=== PATIENT | male | born 1990 | race Caucasian/White ===

== ENCOUNTER 2016-12-26 10:17 | Inpatient (IN) | payer BC ==
[~2016-12-26] VITALS: Wt 94.8 kg
[~2016-12-26 10:17] MED LIST: ATARAX,VISTARIL50 MG PO; CARBIDOPA/LEVOD1 TA1 PO; Cleocin150 MG PO; ZOFRAN 4 MG ED2 TAB PO
[2016-12-26 10:24] VITALS: BP 149/76
[2016-12-26 11:27] LABS: BASO % 0.3 % (0.0-1.0); EOS # 0.1 10*3/uL (0.0-0.4); HEMATOCRIT 47.7 % (42.0-52.0); LYMPH # 1.7 10*3/uL (1.3-4.4); MEAN CELL VOLUME 89.5 fl (80.0-94.0); MEAN CORPUSCULAR HGB CONC 33.5 g/dl (33.0-37.0); MEAN PLATELET VOLUME 10.5 fl (9.6-12.3); MONO # 0.8 10*3/uL (0.1-1.0); NEUT # 10.6 10*3/uL (2.3-7.9); NEUT % 79.4 % (47.0-73.0); PLATELET COUNT AUTOMATED 227 10*3/uL (130-400); RED BLOOD COUNT 5.33 10*6/uL (4.50-5.90); RED CELL DISTRI WIDTH 12.9 % (0-14.5); WHITE BLOOD COUNT 13.3 10*3/uL (4.8-10.8)
[2016-12-26 11:35] LABS: PROTHROMBIN TIME 10.6 SECONDS (9.0-12.4)
[2016-12-26 11:40] LABS: BILIRUBIN 1+ (NEGATIVE); BLOOD NEGATIVE (NEGATIVE); CLARITY SL CLOUDY (CLEAR); COLOR YELLOW (YELLOW); GLUCOSE NEGATIVE (NEGATIVE); KETONE NEGATIVE (NEGATIVE); LEUKO ESTERASE NEGATIVE (NEGATIVE); NITRITE NEGATIVE (NEGATIVE); PH 6.5 (5.0-9.0); PROTEIN 1+ (NEGATIVE)
[2016-12-26 11:42] LABS: ALBUMIN 4.1 gm/dl (3.1-4.5); ALKALINE PHOSPHATASE 83 U/L (45-117); BILIRUBIN, TOTAL 0.7 mg/dl (0.2-1.0); BUN 9 mg/dl (7-24); CARBON DIOXIDE 29 mmol/L (21-32); CHLORIDE 101 mmol/L (98-107); EST GLOM FILT AFRICAN AMERICAN > 60 ml/min; GLUCOSE 92 mg/dL (65-99); POTASSIUM 3.4 mmol/L (3.5-5.1); SGOT/AST 17 IU/L (3-35); SGPT/ALT 24 U/L (12-78); SODIUM 140 mmol/L (136-145); TOTAL PROTEIN 7.5 gm/dL (6.4-8.2)
[2016-12-26 11:56] LABS: EPITHELIAL CELLS 0-2; RBC 0-2 rbc/hpf (0-2); URINE AMPHETAMINES < 1000 (1000ng/ml); WBC 0-2 wbc/hpf (0-5)
[2016-12-26 11:57] LABS: BACTERIA TRACE; URINE REFLEX COMMENT NO (NO)
[2016-12-26 12:00] VITALS: BP 114/65
[2016-12-26 12:00] LABS: URINE BARBITURATES < 200 (200ng/ml); URINE COCAINE < 300 (300ng/ml)
[2016-12-26 16:00] VITALS: BP 117/65
[2016-12-26 20:00] VITALS: BP 110/63
[2016-12-27] VITALS: BP 98/52
[2016-12-27 04:00] VITALS: BP 115/59
[2016-12-27 08:00] VITALS: BP 120/82
[2016-12-27 12:00] VITALS: BP 124/65
[2016-12-27 16:00] VITALS: BP 122/64
[2016-12-27 20:00] VITALS: BP 120/60
[2016-12-28] VITALS: BP 109/68
[2016-12-28 08:00] VITALS: BP 122/76
[2016-12-28 12:00] VITALS: BP 126/72
[2016-12-28 16:00] VITALS: BP 106/75
[2016-12-28 20:00] VITALS: BP 91/75
[2016-12-29] VITALS: BP 148/86
[2016-12-29 08:00] VITALS: BP 124/84
[2016-12-29] MEDS ORDERED: METHOCARBAMOL750 M1 PO (08:24)
[2016-12-29] MEDS ORDERED: ROPINIROLE HYD0.5 MG PO (08:24)
[2016-12-29] MEDS ORDERED: ATARAX,VISTARIL50 MG PO (08:24)
[2016-12-29] MEDS ORDERED: CLONIDINE HCL0.1 MG PO (08:26)
== END 2016-12-29 09:20 | disposition home or self-care (01) | DRG 897 ==
LOC: ED 10:17 → EDHOLD 10:46 → 5E 10:51
PROVIDERS: Emergency Medicine; Hospitalist
DX: F11.23 Opioid dependence with withdrawal (principal); F32.9 Major depressive disorder, single episode, unspecified; E87.6 Hypokalemia; F41.9 Anxiety disorder, unspecified; D72.829 Elevated white blood cell count, unspecified; F17.210 Nicotine dependence, cigarettes, uncomplicated; K59.03 Drug induced constipation; Z71.6 Tobacco abuse counseling; Z84.89 Family history of other specified conditions